=== PATIENT | female | born 1935 | race Caucasian/White ===

== ENCOUNTER 2017-09-16 09:03 | Day surgery (SDC) | payer MEDICARE, OTHER ==
[~2017-09-16] VITALS: Ht 160 cm; Wt 93.9 kg
[~2017-09-16 09:03] MED LIST: ASPIR-LOW81 MG PO; BENICAR HCT 401 EACH PO; DICLOFENAC POTA50 MG PO; DICLOFENAC SODI50 MG PO; DILTIAZEM 24HR180 M1 PO; GABAPENTIN300 MG PO; GABAPENTIN400 MG PO; GLIMEPIRIDE2 MG PO; LEVOTHYROXINE75 MCG PO; MINOCYCLINE HC100 MG PO; VITAMIN B COMP1 EACH PO
--- NOTE | 2017-09-16 10:38 | NUR ---
BLOOD SUGAR 113
== END 2017-09-16 11:56 | disposition home or self-care (01) ==
LOC: DS 09:03 → OPS 09:03 → DS 10:00 → OPS 10:00
PROC: 08RJ3JZ Replacement of Right Lens with Synthetic Substitute, Percutaneous Approach (ICD-10-PCS; principal; 2017-09-16)
DX: H25.811 Combined forms of age-related cataract, right eye (principal); I10 Essential (primary) hypertension; E11.9 Type 2 diabetes mellitus without complications; Z90.49 Acquired absence of other specified parts of digestive tract; Z90.710 Acquired absence of both cervix and uterus; Z98.890 Other specified postprocedural states; Z88.1 Allergy status to other antibiotic agents; Z95.0 Presence of cardiac pacemaker; Z79.899 Other long term (current) drug therapy
CPT/HCPCS: 00140; J2250

== ENCOUNTER 2017-09-30 08:28 | Day surgery (SDC) | payer MEDICARE, OTHER ==
[~2017-09-30] VITALS: Ht 160 cm; Wt 93.9 kg
== END 2017-09-30 10:15 | disposition home or self-care (01) ==
LOC: OPS 08:28 → DS 08:28 → OPS 09:30
PROVIDERS: Ophthalmology
PROC: 08RK3JZ Replacement of Left Lens with Synthetic Substitute, Percutaneous Approach (ICD-10-PCS; principal; 2017-09-30 09:30)
DX: H25.812 Combined forms of age-related cataract, left eye (principal); E11.9 Type 2 diabetes mellitus without complications; I10 Essential (primary) hypertension
CPT/HCPCS: 140

== ENCOUNTER 2022-02-17 16:29 | Emergency (ER) | payer MEDICARE ==
[~2022-02-17] VITALS: Ht 160 cm; Wt 93.9 kg
--- OUTSIDE RECORDS SUMMARY | 2022-02-17 16:32 | XMS ---
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 Ron has no Care Guidelines for this patient. Сергей VISIT COUNT (12 MO.) 1 STEFFANIE Farah TOTAL 1 NOTE: Visits indicate total known visits. ED/UCC VISIT TRACKING (12 MO.) 02/17/2022 16:30 STEFFANIE Castillo [place] TYPE: Emergency COMPLAINT: - RT LEG PAIN INPATIENT VISIT TRACKING (12 MO.) No inpatient visits to display in this time frame [id number]
[2022-02-17] MEDS ORDERED: ALLOPURINOL100 MG PO (16:50)
[2022-02-17] MEDS ORDERED: PREVALITE PACKET4 GM PO (16:50)
[2022-02-17] MEDS ORDERED: TORSEMIDE5 MG PO (16:50)
[2022-02-17] MEDS ORDERED: OLMESARTAN MEDO40 MG PO (16:50)
[2022-02-17] MEDS ORDERED: BACTRIM DS TAB1 EACH PO (17:48)
== END 2022-02-17 18:38 | disposition home or self-care (01) ==
LOC: ED 16:29
DX: L03.115 Cellulitis of right lower limb (principal); I10 Essential (primary) hypertension; E11.40 Type 2 diabetes mellitus with diabetic neuropathy, unspecified; Z88.1 Allergy status to other antibiotic agents; Z79.899 Other long term (current) drug therapy; Z79.82 Long term (current) use of aspirin
CPT/HCPCS: 36415; 80048; 83880; 85025; 93971; 99284-25; A9270

== ENCOUNTER 2022-02-20 14:08 | Inpatient (IN) | payer MEDICARE ==
[~2022-02-20] VITALS: Ht 160 cm; Wt 90.0 kg
[~2022-02-20 14:08] MED LIST changes: +ALLOPURINOL100 MG PO; +BACTRIM DS TAB1 EACH PO; +OLMESARTAN MEDO40 MG PO; +PREVALITE PACKET4 GM PO; +TORSEMIDE5 MG PO
--- OUTSIDE RECORDS SUMMARY | 2022-02-20 14:12 | XMS ---
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 Ron has no Care Guidelines for this patient. [facility]гей [facility]12 MO.) [facility] NOTE: Visits indicate total known visits. ED/C VISIT TRACKING (12 MO.) [facility] COMPLAINT: - R LEG RED/SWOLLEN 02/17/2022 16:30 STEFFANIE Castillo [place] TYPE: Emergency COMPLAINT: - RT LEG PAIN INPATIENT VISIT TRACKING (12 MO.) No inpatient visits to display in this time frame [email or web address]
[2022-02-20] MEDS ORDERED: GEMTESA75 MG PO (15:32)
--- NOTE | 2022-02-20 19:55 | NUR ---
PT ARRIVED TO THE UNIT, IN NO ACUTE DISTRESS. DAUGHTER AT BEDSIDE. VSS NOTABLE CELLULITIS TO RT LOWER EXTERMITY AND WOUND TO GREAT RT TOE PER DAUGHTER PT WAS BEING SEEN BY PCP. ORIENTED TO ROOM CALL LIGHT WITHIN REACH WILL CONTINUE TO MONITOR.
--- NOTE | 2022-02-20 22:00 | NUR ---
PT IN BED AND APPEARS COMFORTABLE. DENIES PAIN/DISCOMFORT. VSS. CALL LIGHT AT HAND. WILL CONT TO MONITOR.
--- NOTE | 2022-02-21 01:00 | NUR ---
PT IS RESTING IN BED W/ HER EYES CLOSED AND APPEARS COMFORTABLE. TOLERATING IVF. VERBALIZES NEEDS APPROPRIATELY. CALL LIGHT WITHIN REACH. WILL CONT TO MONITOR.
--- NOTE | 2022-02-21 05:10 | NUR ---
PT RESTING IN BED WITH HER EYES CLOSED; NO DISTRESS NOTED. TOLERATING IVF ORDERED. VSS. VERBALIZES NEEDS APPROPRIATELY. CALL LIGHT WITHIN REACH. WILL CONT TO MONITOR.
--- NOTE | 2022-02-21 08:38 | NUR ---
PATIENT AWAKE IN BED, DAUGHTER IN ROOM. VITALS AND I&OS CHARTED, DUMONT EMPTIED. GLUCOSE CHECKED AND BREAKFAST PROVIDED. NO OTHER NEEDS AT THIS TIME
--- NOTE | 2022-02-21 09:07 | NUR ---
IN PATIENT'S ROOM FOR ASSESSMENT, VITALS, AND ADVERTISING MATERIAL DISTRIBUTOR. PATIENT RESTING IN BED AND APPEARS COMFORTABLE. PT ALERT, ORIENTED, AND PLEASANT. PT STATES SHE HAS CONSTANT PAIN IN LEGS FROM NEUROPATHY. RIGHT LEG VERY RED, UP TO PAST THE KNEE JOINT AND OUTLINED WITH BLACK INK, WHICH REDNESS HAS EXTENDED SLIGHTLY BEYOND THE MARKINGS. PLAN OF CARE DISCUSSED WITH PATIENT AND HER DAUGHTER, AND ALL QUESTIONS ANSWERED BEST POSSIBLE. IVF CONTINUE AT 125 ML/HR. BOTH IV SITES FLUSHING AND WORKING WELL. TEMP WAS 99.0 THIS AM. PT ATE 90% OF HER BREAKFAST. DUMONT DRAINING CLEAR YELLOW DILUTE URINE. PEDAL PULSES HARD TO PALPATE AND DOPPLER USED. TONI FROM IN ROOM TALKING ABOUT PLANS FOR D/C. WILL CONTINUE TO MONITOR. BP THIS AM 130/43. PT REMAINS IN A VENT PACED RHYTHM, RATE 80s.
--- NOTE | 2022-02-21 10:42 | NUR ---
PATIENT REMAINS RESTING IN BED WITH DAUGHTER AT BEDSIDE. PICTURES TAKEN OF RIGHT LEG AND RIGHT TOE AND PLACED IN CHART - PT ABLE TO SIGN CONSENT FOR PHOTOS. PT REMAINS ON ROOM AIR, HR IN THE 80s. LASP BP 115/44.
--- NOTE | 2022-02-21 11:51 | NUR ---
DR. RAMSEY IN ROOM TO SEE PATIENT AND PLAN OF CARE DISCUSSED. PATIENT WILL TRANSFER TO MEDICAL FLOOR W/O TELEMETRY AND DUMONT TO BE D/C. PT AND HER DAUGHTER KIN UPDATED ON PLAN AND ALL QUESTIONS ANSWERED. PT C/O SHARP PAINS "NEUROPATHY LIKE" IN HER FEET AND LEGS NOW. WILL CONTINUE TO KEEP LEG ELEVATED. CONTINUE TO MONITOR.
--- NOTE | 2022-02-21 12:01 | NUR ---
PATIENT SITTING UP IN BED FOR LUNCH. VITALS AND I&OS CHARTED. DUMONT EMPTIED. GLUCOSE CHECKED AND RN NOTIFIED. CALL LIGHT IN EASY REACH.
--- NOTE | 2022-02-21 13:04 | NUR ---
REPORT GIVEN TO ELIZABETH LEBRON WHO WILL BE RESUMING CARE FOR THIS PATIENT. ALL QUESTIONS ANSWERED. PT WILL TRANSFER TO MED/SURG Aj DUMONT TO BE D/C.
--- NOTE | 2022-02-21 13:30 | NUR ---
DUMONT CATHETER REMOVED AT THIS TIME, 8.5 ML STERILE WATER REMOVED FROM [place], PT TOLERATED WELL REMOVED WITHIN NORMAL LIMITS, MONITOR REMOVED, PT TRANSPORTED TO ROOM 120 ON MEDICAL/SURGICAL UNIT.
--- NOTE | 2022-02-21 13:30 | NUR ---
RECEIVED REPORT FROM CCU RN, TRANSPORTED PT. TO ROOM 120, ASSUMED CARE OF PT., ORDERS REVIEWED AND ACKNOWLEDGED, ASSESSMENT COMPLETED AND ORIENTED TO HER ROOM. RATES PAIN 2-3/10 FOR R LE. ELEVATED ON PILLOWS AND REDDENED AREA MARKED. IV ABX ORDERED, TAKING PO BUT DECREASED APPETITE. STATES NO BM SINCE SATURDAY. HER NORMAL BOWEL HABIT IS EVERY DAY LOOSE BM IN WHICH SHE TAKES A MED FOR. WATER AT BEDSIDE, 2 PERIPHERAL IV'S. IVF SALINE LOCKED. STATES SHE HAS HAD A FALL AT HOME AND USES A FWW AT HOME. SHE IS FEELING LIKE SHE COULD STAND BUT IS WEAK. B/P 120'S/49, HR 79, RA, LUNGS CLEAR. A & O X 4. DUMONT DC'D APPROX. 1330, DTV AT 1730. VISITORS AT BEDSIDE. IN HER ROOM.
[2022-02-21] MEDS ORDERED: PREVALITE PACKET4 GM PO (15:46)
--- NOTE | 2022-02-21 15:47 | NUR ---
MED REC COMPLETE
--- NOTE | 2022-02-21 16:05 | NUR ---
NO URGE TO URINATE YET, SHE IS DRINKING SMALL AMOUNTS OF FLUID. RESTING IN BED, PT AND PHARMACIST VISITED PATIENT. FWW IN ROOM IN CASE SHE WANTS TO STAND PIVOT TO BSC, DTV BY 1730. WATCHING TV, OFFERED FLUIDS, WATER W/SPLASH OF CRANBERRY.
--- NOTE | 2022-02-21 19:09 | EKG ---
[facility] [address] [place] [address] Signed Atrial-sensed ventricular-paced rhythm Abnormal ECG No previous ECGs available Confirmed by KASSANDRA RAMSEY MD ([id number]) on 02/21/2022 7:09:29 PM Electronically Signed By: KASSANDRA RAMSEY MD 02/21/22 1909 PATIENT NAME: JOVANY MENDEZ Electrocardiogram DATE OF : 37 PHYSICIAN: KASSANDRA RAMSEY MD REPORT #: [id number] REPORT IS CONFIDENTIAL AND NOT TO BE RELEASED WITHOUT AUTHORIZATION
--- NOTE | 2022-02-21 19:30 | NUR ---
REPORT RECEIVED FROM ELIZABETH SORTO. pt RESTING IN BED WITH EYES CLOSED, BREATHING EQUAL AND UNLABORED. CALL LIGHT WITHIN REACH.
--- NOTE | 2022-02-21 21:58 | NUR ---
2PA BACK TO BED FROM BS WITH FWW. ASSESSMENT COMPLETE. RIGHT LEG RED, HOT TO TOUCH, 2+ EDEMA. ELEVATED ON TWO PILLOWS. pt RATES PAIN 3-4/10 DENIES PRN PAIN MEDICATION OFFERED. IV SITES FLUSHED WNL. IVF INFUSING WNL. IV ANTIBIOTIC INFUSION COMPLETE. ICE WATER PROVIDED AND IN REACH. CALL LIGHT NEXT TO pt. NO ADDITIONAL REQUESTS.
--- NOTE | 2022-02-22 00:10 | NUR ---
CALL LIGHT ANSWERED. pt WEAK. ASSISTED TO USE BED MICHELE AT THIS TIME FOR pt SAFETY. LARGE VOID, SPILLAGE ON CHUX. CHUX AND ATTENDS CHANGED. IVF INFUSING WNL. CALL LIGHT IN REACH.
--- NOTE | 2022-02-22 03:06 | NUR ---
CALL LIGHT ANSWERED. pt REQUESTING TO VOID, NOT SURE IF SHE IS STRONG ENOUGH TO STAND AT THIS TIME. ATTEMPT TO USE BED MICHELE. NO VOID. pt FEELS URGE TO VOID. BLADDER SCAN FOR >850 MLS. 3PA TO STAND AND PIVOT TO BSC. 200 ML VOID, BLADDER SCAN >758 MLS. pt BACK IN BED, ATTENDS ON. ASSESSMENT COMPLETE. RIGHT LEG ELEVATED ON PILLOW. pt DENIES NEED FOR PRN MEDICATIONS. IVF INFUSING WNL. CALL LIGHT IN REACH.
--- NOTE | 2022-02-22 03:11 | NUR ---
PHONE CALL TO , TELEPHONE ORDERS RECEIVED TO PLACE DUMONT CATHETER REPEATED BACK. UPDATED THAT IV WAS SL FROM 1330 TO 2000 PER NOTES AND REPORT. TELEPHONE ORDER TO CONTINUE SODIUM BICARB, TWO BAGS ORDERED.
--- NOTE | 2022-02-22 03:47 | NUR ---
DUMONT CATHETER PLACED BY ELIZABETH RENE. STERILE TECHNIQUE MAINTAINED, EDUCATION PROVIDED TO pt. IMMEDIATE 950 MLS DILUTE URINE RETURNED. pt REPOSITIONED WITH RIGHT LEG ELEVATED ON TWO PILLOWS. IVF INFUSING WNL. CALL LIGHT WITHIN REACH.
--- NOTE | 2022-02-22 06:49 | NUR ---
pt SLEEPING SOUNDLY. STARTLES TO RN VOICE ENTERING ROOM. DUMONT EMPTIED, DILUTE URINE. VSS. pt DENIES PAIN AT THIS TIME, REQUSTING TO REST. SCHEDULED MEDICATION ADMINSITERED. IVF INFUSING WNL. CALL LIGHT IN REACH.
--- NOTE | 2022-02-22 07:15 | NUR ---
Report from ELIZABETH Cano. Patient awake, alert and oriented, sitting up in bed. Call light in reach, bed rails up X2. Denies needs at this time.
--- NOTE | 2022-02-22 08:06 | NUR ---
LYING IN BED, CALL LIGHT IN REACH. AM MEDICATIONS ADMINISTERED, PRN TYLENOL FOR PAIN. REPOSITIONED LEG PER PATIENT REQUEST. DENIES OTHER NEEDS AT THIS TIME. ASSESSMENT COMPLETED.
--- NOTE | 2022-02-22 11:10 | NUR ---
ANGELA IS SAT UP IN BED WITH RIGHT LEG ELEVATED WITH 2 PILLOWS. BED BATH COMPLETED. CALL LIGHT WITHIN REACH NO FURTHER TASKS AT THIS TIME
--- NOTE | 2022-02-22 16:10 | NUR ---
Faxed Face sheet, H&P, progress notes, labs, covid vaccination dates, med list.
--- NOTE | 2022-02-22 17:00 | NUR ---
Right leg continues to have redness, purpura, and blistering. Pain controlled with PRN Tylenol. Continues on IV antibiotics. Insulin given per sliding scale. Sodium bicarb continues infusing, convert to SL when this bag is completed.
--- NOTE | 2022-02-22 17:01 | NUR ---
Spoke with Karon and her daughter, Yvonne. Asked if they had discussed plan for where pt will go on dc. Pt states she is requiring 2-3 people to get out of bed. She feels she will need a SNF. First choice is [facility], second is [facility] in [place], 3rd is [facility] or [facility]. Let her know I will send a chart. If something changes and it is not needed, we can cancel. Its best to get her name on the list.
--- NOTE | 2022-02-22 18:08 | NUR ---
ANGELA WAS SITTING UP IN BED AND WANTED LAID BACK. I&O AND VITALS CHARTED. CALL LIGHT WITHIN REACH. NO FURTHER TASKS AT THIS TIME
--- NOTE | 2022-02-22 19:10 | NUR ---
SHIFT REPORT RECEIVED FROM DAYSHIFT ELIZABETH SAUNDERS AT BEDSIDE. pt AWAKE AND RESTING IN BED. REDDNESS TO RLE REMAINS OUTLINED, SOME FAINT REDDNESS ALSO NOTED TO RIGHT INNER THIGH NEAR GROIN, OUTLINED BY ELIZABETH SAUNDERS. IV SITE WNL, FLUIDS INFUSING DIRECTED. NO FURTHER NEEDS, CALL LIGHT IN REACH AND BOARD UPDATED.
--- NOTE | 2022-02-22 22:00 | NUR ---
PT CALLED FOR ICEWATER, SHE DENIES FURTHER NEEDS. CALL LIGHT IS CLOSE.
--- NOTE | 2022-02-22 22:15 | NUR ---
ASSESSMENT COMPLETE, SCHEDULED MEDS GIVEN (SEE EMAR). pt A/OX4, CALLS APPROPRIATELY. ASSISTED THE pt WITH CHANGING POSITION IN BED, PILLOW UNDER BLE AND LEFT HIP. NO CHANGE TO RLE APPEARANCE, WEAK PEDAL PULSE TO RLE AND STRONG PEDAL PULSE TO LLE. CHRONIC NUMBNESS AND TINGLING REPORTED D/T "NEUROPATHY". IV SITES X2 WNL AND FLUSHES EASILY, IV FLUIDS INFUSING DIRECTED. WILL SALINE VALERIA DONCE CURRENT BAG IS COMPLETE. NO FURTHER NEEDS, CALL LIGHT IN REACH.
--- NOTE | 2022-02-23 00:26 | NUR ---
ASSISTED pt WITH REPOSITIONING IN BED, PILLOW UNDER RIGHT HIP AND RLE. IV SITE REMAINS WNL. CALL LIGHT IN REACH, NO FURTHER NEEDS.
--- NOTE | 2022-02-23 01:21 | NUR ---
iv pump alarming, issue resolved. iv site now saline locked and wnl. no further needs, iv pump cleared. call light and personal belongings in reach.
--- NOTE | 2022-02-23 03:00 | NUR ---
IN TO MOVE PILLOW FROM PTs RIGHT SIDE TO THE LEFT, PT ABLE TO ASSIST WITH THE ROLE, FRESH ICE WATER GIVEN
--- NOTE | 2022-02-23 03:26 | NUR ---
ASSESSMENT COMPLETE, NO ACUTE CHANGES. pt RESTING IN BED, OPENED EYES TO VOICE. DENEID NEED FOR PAIN MEDICATION, BUT STATES, "OH I DON'T KNOW" WHEN ASKED TO RATE PAIN ON PAIN SCALE. WILL MONITOR. RLE REMAINS ELEVATED IN BED WITH PILLOWS X2, +2 EDEMA TO LLE, MORE SO IN FOOT. PEDAL PULSES WEAK COMPARED TO LEFT FOOT. NO CHANGES TO REDDNESS, REMAINS WITHIN OUTLINE. NO FURTHER NEEDS, CALL LIGHT IN REACH.
--- NOTE | 2022-02-23 06:00 | NUR ---
scheduled iv ancef and po thyroid medication both given at this time, see emar. no further needs, call light in reach.
--- NOTE | 2022-02-23 07:41 | NUR ---
Patient awake in bed, alert and oriented x4. Patient on room air, respirations even and non labored. RLE is elevated at this time. Patient denies needs. Personal supplies and call light within reach.
--- NOTE | 2022-02-23 09:58 | NUR ---
macyt is sitting up in bed. daughter is in room. i&o and vs charted. call light within reach. no further tasks at this time
--- NOTE | 2022-02-23 12:03 | NUR ---
PT SEEMS ALERT, OREINTED AND VISITING WITH FRIEND KAROLINA. PT VERY PLEASED WITH HER CARE-SAID SHE IS FEELING SO MUCH BETTER". GOOD VISIT, PT REQUESTED PRAYER. LEFT G.POST
--- NOTE | 2022-02-23 12:24 | NUR ---
Arshad removed per provider order. Arshad balloon deflated prior to removal, 9ml sterile water removed. Catheter tip intact. Patient tolerated well. Patient visiting with her family member at this time. Legs elevated in on pillows. No current needs. Personal supplies and call light within reach.
--- NOTE | 2022-02-23 13:54 | NUR ---
patient crying out to get back to bed from the chair. She is in a pain 5/10, requesting whatever she can have. With the heavy assist of 2PA/FWW/Gait belt, returned the patient to bed. The gave her PRN medication and scheduled medications as well. She appears to be more comfortable in the bed.
--- NOTE | 2022-02-23 14:00 | NUR ---
Contacted [facility] and asked if they received the chart I faxed last night requesting placement of this pt. They did receive the chart, but have not reviewed. Pt denies needs.
--- NOTE | 2022-02-23 15:50 | NUR ---
Patient in bed resting, no distress. Legs are elevated at this time. Personal supplies and call light within reach.
--- NOTE | 2022-02-23 17:32 | NUR ---
rasta is sitiing up in bed call light within reach. i&o and vitals charted. no further tasks at this time
--- NOTE | 2022-02-23 18:22 | NUR ---
REPORT FROM PO RN, ASSUMED CARE OF PT. , PT. RESTING IN BED, APPEARS SLIGHTLY LABORED BREATHING AT REST, GENERALIZED EDEMA, BILATERAL UE AND LE, BLADDER SCANNED FOR 620 ML URINE, TIM WAS DC'D THIS AFTERNOON, NO URGE TO URINATE, ASSISTED PT. TO BSC AND LISTENED TO LUNG SOUNDS WHILE UP, CRACKLES AT THE RIGHT BASE AND SLIGHT CRACKLE AT THE LEFT BASE, TACHYPNEA 28 WHILE ON BSC, 02 SATS @ 99 % , DENIES CP OR SOB, LABORED BREATHING PER RN. PT. STATES SHE DOES TAKE A DIURETIC AT HOME AND IT WAS RECENTLY INCREASED TO DAILY. WILL TALK WITH DR. ECHEVERRIA ON THE FLOOR NOW.
--- NOTE | 2022-02-23 18:58 | NUR ---
[place] 5/325mg po admin for reports of 5/10 RLE pain. Strait cath done at this time by kati velez RN using sterile technique. Patient tolerating strait cath well.
--- NOTE | 2022-02-23 19:15 | NUR ---
SHIFT REPORT RECEIVED FROM DAYSHIFT RN ALVIN AT BEDSIDE. pt RESTING IN BED WITH EYES CLOSED. ON RA, RR EVEN AND UNLABORED. CALL LIGHT IN REACH, VISTOR IN ROOM.
--- NOTE | 2022-02-23 20:00 | NUR ---
IN TO PROVIDE PT WITH SOME ICE WATER
--- NOTE | 2022-02-23 20:40 | NUR ---
PT PLACED UNTO A BEDPAN, WILL CALL WHEN READY
--- NOTE | 2022-02-23 21:00 | NUR ---
IN TO GET VITALS, PT VOIDED LARGE AMT WITH BEDPAN AND ATTENDS
--- NOTE | 2022-02-23 21:57 | NUR ---
ASSESSMENT COMPLETE, SCHEDULED MEDS GIVEN (SEE EMAR). pt A/OX4, CALLS APPROPRIATELY. IV SITE WNL, FLUSHES EASILY. NO CHANGE TO REDDNESS TO RLE, REMAINS ELEVATED IN BED WITH PILLOWS X2. CALL LIGHT IN REACH, WILL MONITOR FOR CHANGES. pt DENIES NEED FOR PAIN MEDICATION AT THIS TIME, REPORTS TOLERABLE 01/04.
--- NOTE | 2022-02-23 23:25 | NUR ---
PT ASSISTED OFF OF BEDPAN, VOIDED LOTS OF URINE, WATER FILLED
--- NOTE | 2022-02-24 01:30 | NUR ---
ROUNDED ON pt, pt AWAKE AND RESTING IN BED. DENIES NEEDS OR CONCERNS. CALL LIGHT IN REACH. RLE REMAISN ELEVATED IN BED WITH PILLOWS X2.
--- NOTE | 2022-02-24 03:58 | NUR ---
ASSESSMENT COMPLETE, NO ACUTE CHANGES. pt AWOKE TO VOICE, DENIES NEEDS OR CONCERNS. DENIES PAIN, PRN PAIN MEDICATION OFFERED, pt DECLINED. NO CHANGE TO REDDNESS/DISCOLORATION TO RLE, REMAINS ELEVATED IN BED WITH PILLOWS X2. WEAK PEDAL PULSES, GENERALIZED EDEMA REMAINS NOTED. pt DENIES CALF PAIN. CALL LIGHT IN REACH.
--- NOTE | 2022-02-24 06:45 | NUR ---
ASSISTED PT ON AND OFF BEDPAN, NEW NO PAD, ATTENDS, CHUX, IN PLACE, NO FURTHER NEEDS
--- NOTE | 2022-02-24 06:59 | NUR ---
SCHEDULED THYROID MEDICATION AND SCHEDULED IV ABX GIVEN, SEE EMAR. NO FURTHER NEEDS, CALL LIGHT IN REACH.
--- NOTE | 2022-02-24 07:30 | NUR ---
UPDATED DR ECHEVERRIA ON pt's VOIDING VIA BEDPAN THIS SHIFT. NO NEW ORDERS RECEIVED.
--- NOTE | 2022-02-24 07:40 | NUR ---
Patient in bed resting, eyes closed, respirations even and non labored. No notable distress. Personal supplies and call light within reach.
--- NOTE | 2022-02-24 09:07 | NUR ---
[place] 5/325mg po admin for reports of 5/10 right leg pain.
--- NOTE | 2022-02-24 12:33 | NUR ---
Patient in bed, RLE elevated at this time. Patient reports pain has imrproved. RLE elevated on pillows at this time. Redness to RLE remains within marked borders, continued swelling and warth noted to leg. Good pedal pulse present to RLE. Patient has a visitor at bedside. No current needs.
--- NOTE | 2022-02-24 15:15 | NUR ---
Admin one tab [place] 5/325mg po for reports of 5/10 RLE pain.
--- NOTE | 2022-02-24 19:20 | NUR ---
SHIFT REPORT RECEIVED FROM CYWITERESA FONTENOT AT BEDSIDE. pt RESTING IN BED, AWAKE. RLE ELEVATED IN BED, REDDNESS REMAINS WITHIN OUTLINE, WILL CONTINUE TO MONITOR. CALL LIGHT IN REACH.
--- NOTE | 2022-02-24 21:15 | NUR ---
PT ASSISTED ONTO BEDPAN TO VOID, BEDPAN CHOOSEN DUE TO URGANCY
--- NOTE | 2022-02-24 21:20 | NUR ---
VS TAKEN, ACCU CHECK DONE, I&Os DONE, FRESH ICE WATER FILLED, NO FURTHER NEEDS AT THIS TIME
--- NOTE | 2022-02-24 22:03 | NUR ---
assessment complete, scheduled meds given. 3 units insulin lispro ss verified with second rn lupillo carrizales result of 188. pt a/ox4, calls appropriately. rle remaisn unchanged since start of shift, weak pedal pulse. generalized +2 edema in right foot. remains elevated. diffuse erythema with hemorrhagic spots also remains noted. call light in reach.
--- NOTE | 2022-02-24 23:43 | NUR ---
elvirao for desenex powder ordered for reddness to pannus/groin folds.
--- NOTE | 2022-02-24 23:48 | NUR ---
PT CALLED FOR ASSISTANCE TO TOILET. THIS RN AND ODIN INTO PT ROOM ASSISTED PT UP TO BEDSIDE COMMODE WITH FWW, PT TOLERATED ACTIVITY FAIR, SHE REQUIRED BOTH STAFF MEMBERS TO ASSIST IN STANDING AND THEN TO REPOSITION IN BED. WARM BLANKET PROVIDED TO PT DELIGHT. NO OTHER REQUESTS OR CONCERNS. WAS NOT AND REPORTED TO PRIMARY NURSE ANDIE THAT PT HAS REDNESS IN PANNUS SKIN FOLDS. TOSHA TO ORDER NIO RX POWDER TO APPLY TO AFFECTED AREAS
--- NOTE | 2022-02-24 23:50 | NUR ---
IN TO ASSIST PT UNTO THE BSC, 2PA FWW PIVOT, PT VOID AND PASS BM, PIVOT BACK TO BED, BOOSTED, FRESH ICE WATER GIVEN, NO FURTHER NEEDS AT THIS TIME
--- NOTE | 2022-02-25 00:11 | NUR ---
SCHEDULED DESENEX POWDER APPLIED TO GROIN/PANNUS FOLDS D/T REDDNESS. pt EDUCATED ON NEW MEDICATION, pt VERBALIZED UNDERSTANDING. SECOND RN MARI MARTINEZ VERIFIED MEDICATION. NO FURTHER NEEDS, CALL LIGHT IN REACH.
--- NOTE | 2022-02-25 02:22 | NUR ---
pt RESTING IN BED ON RA, RR EVEN AND UNLABORED. NO DISTRESS NOTED. CALL LIGHT IN REACH.
--- NOTE | 2022-02-25 03:45 | NUR ---
pt RESTING IN BED, EYES CLOSED. RR EVEN AND UNLABORED. NO DISTRESS NOTED. CALL LIGHT IN REACH.
--- NOTE | 2022-02-25 05:00 | NUR ---
PT ASSISTED UP TO THE BSC, 2PA PIVOT FWW, CLEAN DRAW SHEET AND CHUX PROVIDED, BACK TO BED, VITALS DONE, I&Os, FRESH ICE WATER GIVEN, NO FURTHER NEEDS AT THIS TIME
--- NOTE | 2022-02-25 05:21 | NUR ---
ASSESSMENT COMPLETE, pt UP 2PA WITH FWW FROM BSC BACK TO BED. ASSESSMENT COMPLETE, NO ACUTE FINDINGS. NO CHANGES TO RLE, BLISTER CLUSTERS X2 REMAINS NOTED, ELEVATED IN BED. pt REPORTS 5/10 PAIN, PRN PAIN MEDICATION AND SCHEDULED THYROID MEDICATION GIVEN. VSS, I&O'S COMPELTE. FRESH WATER GIVEN.
--- NOTE | 2022-02-25 06:00 | NUR ---
SCHEDULED IV ABX GIVEN, IV SITE WNL. NO FURTHER NEEDS, CALL LIGHT IN REACH.
--- NOTE | 2022-02-25 07:50 | NUR ---
Patient in bed resting, eyes closed, respirations even and non labored. No notable distress. Personal supplies and call light within reach.
--- NOTE | 2022-02-25 10:37 | NUR ---
Patient up to void with heavy two person assist using FWW. Patient reports her legs are very painful. [place] in use for pain. Patient to work with physical therapy at this time. No current needs. Personal supplies and call light within reach.
--- NOTE | 2022-02-25 10:47 | NUR ---
One tab [place] 5/325mg po admin for reports of 5/10 leg pain.
--- NOTE | 2022-02-25 14:41 | NUR ---
Patient up to void, 750ml clear yellow urine out. Patient reports she is feeling better this afternoon, reporting better pain control. Patient's RLE elevated on pillows. Pedal pulse intact to RLE. Patient has no needs at this time. Personal supplies and call light within reach.
--- NOTE | 2022-02-25 17:05 | NUR ---
Admin one tab [place] 5/325mg po for reports of 5/10 RLE pain.
--- NOTE | 2022-02-25 19:00 | NUR ---
SHIFT REPORT RECEIVED FROM DAYSHIFT ELIZABETH FONTENOT AT BEDSIDE, pt AWAKE AND CURRENTLY ON BSC. NO NEEDS OR CONCERNS VERBALIZED, CALL LIGHT IN REACH.
--- NOTE | 2022-02-25 22:19 | NUR ---
ASSESSMENT COMPLETE, SCHEDULED MEDS GIVEN (SEE EMAR). IV SITES X2 WNL. pt DENIES PAIN AND NAUSEA. NO CHANGES TO RLE, REMAINS ELEVATED IN BED WITH PILLOWS X2. PEDAL PULSES NOTED, pt REPORTS CHRONIC NEUROPATHY. pt TO BS, 2PA WILL CALL WHEN READY TO GO BACK TO BED, CALL LIGHT IN REACH.
--- NOTE | 2022-02-25 23:45 | NUR ---
pt RESTING IN BED WITH EYES CLOSED, RR EVEN AND UNLABORED. NO DISTRESS NOTED. CALL LIGHT IN REACH.
--- NOTE | 2022-02-26 02:48 | NUR ---
pt RESTING IN BED WITH EYES CLOSED, RR EVEN AND UNLABORED. ON RA, NO DISTRESS NOTED. RLE REMAINS ELEVATED IN BED, WILL CONTINUE TO MONITOR. CALL LIGHT IN REACH.
--- NOTE | 2022-02-26 03:15 | NUR ---
ASSESSMENT COMPLETE, NO ACUTE CHANGES. FRESH WATER PROVIDED AND pt UP 2PA WITH FWW TO BSC AND BACK TO BED. RLE REMAINS ELEVATED IN BED W/ PILLOWS. NO FURTHER NEEDS, CALL LIGHT IN REACH.
--- NOTE | 2022-02-26 05:19 | NUR ---
ASSISTED pt WITH REPOSITIONING ANF BOOSTED pT IN BED WITH HELP FROM KATHERYN PONCE. SCHEDULED THYROID MEDICATION AND PRN PAIN MEDICAITON, pT REPORTS 5/10 PAIN IN RLE. SEE EMAR. CALL LIGHT IN REACH.
--- NOTE | 2022-02-26 05:45 | NUR ---
CALL LIGHT ANSWERED, pt REPORTS PAIN IN RIGHT UPPER ARM/SHOULDER. pt DENIES SOB, CHEST PAIN, JAW PAIN, DYSPNEA, INDIGESTION. HEART SOUNDS REGULAR W/ AUSCULTATION. VSS- HR 78, BP 130/39, MAP OF 61, RR 19. pt RESTING IN BED, NO DISTRESS NOTED. RR EVEN AND UNLABORED. pt RECENTLY GIVEN PAIN MEDICATION AND PILLOW PLACED UNDER ARM FOR COMFORT WILL MONITOR. CALL LIGHT IN REACH.
--- NOTE | 2022-02-26 05:57 | NUR ---
SCHEDULED IV ABX GIVEN DIRECTED, SEE EMAR. IV ISTE WNL. pt RESTING IN BED AND SLEPT THROUGH TECHNICAL SUPPORT REPRESENTATIVE W/ EXCEPTION OF BRIEF AWOKE TO VOICE. NO DISTRESS NOTED. NO NEEDS VERBALIZED.
--- NOTE | 2022-02-26 08:00 | NUR ---
Contacted [facility] and asked if they will have a bed for this patient. Received a message they will let me know.
--- NOTE | 2022-02-26 08:45 | NUR ---
MORNING ASSESSMENT COMPLETE. PATIENT IS SITTING UP IN BED TO EAT BREAKFAST, DAUGHTER IN ROOM WITH PATIENT. PATIENT REPORTS PAIN IS MINIMAL, RIGHT LEG ELEVATED ON SEVERAL PILLOWS, DRAINAGE NOTED. RIGHT ARM IV'S X2 FLUSHED AND INTACT. PATIENT DENIES OTHER NEEDS AT THIS TIME.
--- NOTE | 2022-02-26 10:03 | NUR ---
IV VANCO INFUSING FOR 1 HOUR.
--- NOTE | 2022-02-26 11:08 | NUR ---
PATIENT GIVEN ONE PAIN PILL IN ANTICIPATION OF WORKING WITH PHYSICAL THERAPY. PATIENT IS SALINE LOCKED AFTER ABX INFUSION.
--- NOTE | 2022-02-26 12:56 | NUR ---
PATIENT UP TO COMMODE WITH 2PS AND FWW. PATIENT TOLERATED ACTIVITY--FAIR.
--- NOTE | 2022-02-26 13:10 | NUR ---
Received a call from Cristian, he states rn reviewed the chart and need to know: number of people needed to assist, is pt still on IV antibiotics, and if there will be wound care orders. Spoke with Dr. Rojo and updated Cristian. He then replied they will have a bed open at 10am tomorrow for this pt.
--- NOTE | 2022-02-26 14:18 | NUR ---
Kaylie BRAVO IN WORKING WITH PT, WILL CHECK BACK
--- NOTE | 2022-02-26 15:00 | NUR ---
Texted Cristian, I have just faxed orders and I scheduled wc transport for 1045 as this was the only slot available. Called and updated charge nurse, wc van will need our wc.
--- NOTE | 2022-02-26 15:40 | NUR ---
DR. ECHEVERRIA IN TO SEE PATIENT, DISCUSS POSSIBLE DISCHARGE TO REHAB.
[2022-02-26] MEDS ORDERED: TAMSULOSIN HCL0.4 MG PO (15:46)
[2022-02-26] MEDS ORDERED: CEPHALEXIN500 MG PO (15:46)
[2022-02-26] MEDS ORDERED: HYDROCODON-ACE1 EA10 PO (15:47)
[2022-02-26] MEDS ORDERED: GABAPENTIN400 MG PO (15:47)
[2022-02-26] MEDS ORDERED: TORSEMIDE5 MG PO (15:47)
[2022-02-26] MEDS ORDERED: LEVOTHYROXINE75 MCG PO (15:48)
[2022-02-26] MEDS ORDERED: ALLOPURINOL100 MG PO (15:49)
--- NOTE | 2022-02-26 16:30 | NUR ---
PT UP TO BSC, WILL CALL WHEN READY TO GO BACK
--- NOTE | 2022-02-26 18:11 | NUR ---
Pt required multiple pad changes under R leg d/t posterior calf drainage (serosanguinous). R leg elevated on 2 pillows. Pt continues to require 2 people for BSC transfers. Plan is to discharge Pt to rehab tomorrow. Pt received 2 Norcos for R leg pain today.
--- NOTE | 2022-02-26 19:30 | NUR ---
SHIFT REPORT FORM ANTHONY Pacheco RN, NO NEW CHANGES, PT 2 PERSON ASSIST, PAIN MANAGED WITH PRN Q6 HOUR NORCO PRN. PT HAS VOIDING FREQUENCY, WITH ACTIVITY UP TO BSC INCREASE PAIN.
--- NOTE | 2022-02-26 22:53 | NUR ---
PT REPORTS PAIN RLE BURNING, HER RIGHT LOWER FOOT IS ELEVATED ON THREE PILLOW, NORCO PO PRN ADMINSITERED FOR 7 PAIN, ASSESSMENT AND V/S AND I/O ARE CHARTED. PT IS ALERT AND ORIETNED. FRESH ICE WATER PROVIDED. NO OTHER REQUESTS OR CONCERNS AT THIS TIME.
--- NOTE | 2022-02-26 23:45 | NUR ---
2 pa. ASSISTED PRIMARY RN MARI. PATIENT WAS UP TO THE BEDSIDE COMMODE. PATIENT VOIDED 800ML. PATIENT IS BACK IN BED. ICE WATER REFILLED.
--- NOTE | 2022-02-26 23:55 | NUR ---
PT CALLED TO REQUEST ASSISTANCE UP TO BEDSIDE COMMODE, USMAN RN AND KRIS CAMPA INTO PT ROOM TO ASSIST. PT VOIDED CLEAR YELLOW URINE, BACK TO BED WITH RLE ELEVATED ON THREE PILLOWS, ICE PACKS APPLIED TO EACH SIDE OF LEG AT THIS TIME. FRESH WATER PROVIDED, ALSO WARM BLANKET PROVIDED. NO OTHER CONCERNS OR REQUESTS AT THIS TIME.
--- NOTE | 2022-02-27 05:29 | NUR ---
PT HAS SLEPT WELL THIS LATTER PART OF THE SHIFT, SHE WAS UP TO BEDSIDE COMMODE FREQUENTLY TO VOID FIRST HALF OF SHIFT. SHE HAD INCREASED PAIN WITH ACTIVITY, NORCO PO PRN ADMINISTERED ONCE FOR 7/10 PAIN AT RLE, BURNING IN NATURE. SHE HAS BEEN ALERT AND ORIENTED FOR ASSESSMENTS. NO NEW CONCERNS THIS SHIFT, PLAN FOR PT TO DISCHARGE TO [facility] THIS AM.
--- NOTE | 2022-02-27 06:40 | NUR ---
ROUNDING ON PT THIS AM, AM ASSESSSMENT, V/S, I/O COMPLETE. ASSESSED PT FOR PAIN THIS AM SHE REPORTS 02/04, SHE SAID SHE WOULD LIKE TO TAKE THE NORCO CLOSER TO HER TIME OF DISCSHARGE TO PROVIDE BETTER PAIN MANAGEMENT WHILE ACTIVE, PT ADMINISTERED TYLENOL PO PRN 500MG THIS AM TO PROVIDE PAIN MANAGEMENT. PT UP TO BEDSIDE COMMODE TWO PERSON ASSIST. REDNESS TO RLE REMAINS IN THE LINES AND LIGHTENING PROXIMALLY. NO NEW CONCERNS, SHE HAS DRAINAGE FROM BACK OF CALF BLISTERS HAVE OPENED AND ARE DRAINING, THIS IS NOT NEW THIS SHIFT.
--- NOTE | 2022-02-27 09:30 | NUR ---
Updated in 929 meeting, pt will dc at 10:00 as scheduled. van will pick pt up. Orders have been sent. I received a call from her daughter this am, she recieved my message last night and will bring clothing and overnight bag for pt to use at [facility].
--- NOTE | 2022-02-27 10:04 | NUR ---
PATIENT UP TO COMMODE TO VOID/BM. DRESSED FOR DISCHARGE. X2 RIGHT ARM IV'S D/C'D, IV CATHETER INTACT, IV SITES ARE NOT INFLAMED.
--- NOTE | 2022-02-27 10:38 | NUR ---
PATIENT IN WHEELCHAIR FOR TRANSPORT TO [facility].
--- NOTE | 2022-02-27 10:52 | NUR ---
Report called to YO JOHNSON at [facility]. Pt was transported by w/c. Discharge instructions provided to Pt and her daughter.
--- NOTE | 2022-02-27 14:10 | NUR ---
CONNECTED WITH PT IN HALLWAY SHE WAS BEING TAKEN BY ISABEL AND KATHERYN JACQUES TO TRANSPORT TO [facility]. PT SEEMS UPSET, SAID SHE DIDN'T FEEL WELL. GAVE ENCOURAGEMENT AND BLESSING
== END 2022-02-27 10:40 | DRG 872 ==
LOC: ED 14:08 → CCU 18:30 → MS 02-21 13:35
PROVIDERS: ADMIT Internal Medicine; ATTEND Internal Medicine
DX: A41.9 Sepsis, unspecified organism (principal); N17.9 Acute kidney failure, unspecified; L03.115 Cellulitis of right lower limb; E87.1 Hypo-osmolality and hyponatremia; Z20.822 Contact with and (suspected) exposure to COVID-19; R65.20 Severe sepsis without septic shock; D64.9 Anemia, unspecified; E11.65 Type 2 diabetes mellitus with hyperglycemia; N32.81 Overactive bladder; E03.9 Hypothyroidism, unspecified; E11.40 Type 2 diabetes mellitus with diabetic neuropathy, unspecified; E79.0 Hyperuricemia without signs of inflammatory arthritis and tophaceous disease; E78.5 Hyperlipidemia, unspecified; R33.9 Retention of urine, unspecified; E86.1 Hypovolemia; M19.90 Unspecified osteoarthritis, unspecified site; Z95.0 Presence of cardiac pacemaker; Z90.49 Acquired absence of other specified parts of digestive tract; Z90.710 Acquired absence of both cervix and uterus; Z98.41 Cataract extraction status, right eye; Z98.42 Cataract extraction status, left eye; Z98.890 Other specified postprocedural states; Z88.1 Allergy status to other antibiotic agents; Z79.82 Long term (current) use of aspirin; Z79.899 Other long term (current) drug therapy
CPT/HCPCS: 36415; 51702; 71045; 73660; 73700; 80048; 80053; 80202; 81001; 82570; 83605; 83735; 84300; 84550; 85025; 86140; 87040; 87088; 87186; 93005; 93010; 97110; 97116; 97162; 97166; 97535; 99285-25; A9270; C9803; J0690; J1650; J1815; J1940; J3370; J3475; J7030; J7050; J7060; J7121; Q9967; U0003

== ENCOUNTER 2022-04-17 10:11 | Inpatient (IN) | payer MEDICARE ==
[~2022-04-17] VITALS: Ht 160 cm; Wt 93.0 kg
[~2022-04-17 10:11] MED LIST changes: +CEPHALEXIN500 MG PO; +GEMTESA75 MG PO; +HYDROCODON-ACE1 EA10 PO; +TAMSULOSIN HCL0.4 MG PO
--- OUTSIDE RECORDS SUMMARY | 2022-04-17 10:14 | XMS ---
[facility] Notification: JOVANY MENDEZ Security Geriatric Nurse Practitioner Events No recent Security Events currently on file CRITERIA MET - PDMP CARE PROVIDERS SAMI GILMORE Mechanic And Welder Current TERRIE Mays PHONE: [phone] WILY FORRESTER Internal Medicine Current PHONE: Unknown BRIDGET HERR Nurse Practitioner Current PHONE: [phone] SARTHAK ALMAZAN Nurse Practitioner: Family Current PHONE: Unknown ARLEN AGUILAR Internal Medicine Current PHONE: [phone] JORGE LUIS GIBSON Nurse Practitioner Current PHONE: [phone] AURORA CHAPMAN I. Physician [employer] Current PHONE: Unknown ABRT EPSTEIN Nurse Practitioner Current PHONE: Unknown CLEM BRIONES Nurse Rose VANCE PHONE: [phone] [facility] PHONE: [phone] DELMER PRESTON Physician [employer] Current PHONE: Unknown Ron has no Care Guidelines for this patient. EBalwinder VISIT COUNT (12 MO.) 3 STEFFANIE Farah TOTAL 3 NOTE: Visits indicate total known visits. ED/UCC VISIT TRACKING (12 MO.) 04/17/2022 10:12 [facility] TYPE: Emergency COMPLAINT: - FLU INFUSION 02/20/2022 14:09 [facility] TYPE: Emergency COMPLAINT: - R LEG RED/SWOLLEN 02/17/2022 16:30 [facility] TYPE: Emergency COMPLAINT: - RT LEG PAIN DIAGNOSES: - Other specified disorders of the skin and subcutaneous tissue - Other prison (current) drug therapy - Essential (primary) hypertension - Pain in right lower leg - intermodal customer service (current) use of aspirin - Type 2 diabetes mellitus with diabetic neuropathy, unspecified - Cellulitis of right lower limb - Allergy status to other antibiotic agents INPATIENT VISIT TRACKING (12 MO.) 02/20/2022 18:[address] [facility] TYPE: Medical Surgical COMPLAINT: - SEVERE SEPSIS, SHOAIB, CELLULITIS DIAGNOSES: - Other specified postprocedural states - Hypo-osmolality and hyponatremia - Hyperlipidemia, unspecified - Cataract extraction status, right eye - Contact with and (suspected) exposure to COVID-19 - Retention of urine, unspecified - Retention of urine, unspecified - Other salvage determiner (current) drug therapy - Type 2 diabetes mellitus with hyperglycemia - Cataract extraction status, right eye - Presence of cardiac pacemaker - Hypovolemia - Cataract extraction status, left eye - Severe sepsis without septic shock - Acute kidney failure, unspecified - Other prison (current) drug therapy - Presence of cardiac pacemaker - Acute kidney failure, unspecified - Anemia, unspecified - Overactive bladder - Severe sepsis without septic shock - Hypo-osmolality and hyponatremia - Type 2 diabetes mellitus with diabetic neuropathy, unspecified - Acquired absence of both cervix and uterus - Hypothyroidism, unspecified - Other specified postprocedural states - Type 2 diabetes mellitus with hyperglycemia - Acquired absence of other specified parts of digestive tract - alf (current) use of aspirin - Unspecified osteoarthritis, unspecified site - Contact with and (suspected) exposure to COVID-19 - Allergy status to other antibiotic agents - Anemia, unspecified - Unspecified osteoarthritis, unspecified site - Hyperuricemia without signs of inflammatory arthritis and tophaceous disease - Cellulitis of right lower limb - Sepsis, unspecified organism - Cataract extraction status, left eye - Acquired absence of both cervix and uterus - Hypothyroidism, unspecified - Acquired absence of other specified parts of digestive tract - Allergy status to other antibiotic agents - Hyperlipidemia, unspecified - Type 2 diabetes mellitus with diabetic neuropathy, unspecified - Hypovolemia - Hyperuricemia without signs of inflammatory arthritis and tophaceous disease - Cellulitis of right lower limb - alf (current) use of aspirin - Overactive bladder [email or web address]
[2022-04-17] MEDS ORDERED: CEFADROXIL500 MG PO (16:35)
[2022-04-17] MEDS ORDERED: DILTIAZEM ER360 MG PO (16:36)
[2022-04-17] MEDS ORDERED: SULFAMETHOXAZO1 EAC1 PO (16:38)
[2022-04-18] MEDS ORDERED: OLMESARTAN MEDO40 MG PO (07:42)
[2022-04-18] MEDS ORDERED: LANTUS100 UNITS/ SUB-Q (11:07)
[2022-04-18] MEDS ORDERED: TYLENOL EXTRA500 MG PO (11:08)
[2022-04-18] MEDS ORDERED: IBUPROFEN200 MG PO (11:09)
--- NOTE | 2022-04-18 18:18 | EKG ---
[facility] [address] [facility] [place] [address] Signed Atrial-sensed ventricular-paced rhythm Abnormal ECG When compared with ECG of 17-APR-2022 10:15, (Unconfirmed) Electronic ventricular pacemaker has replaced Atrial fibrillation Confirmed by KASSANDRA RAMSEY MD ([id number]) on 04/18/2022 6:18:08 PM Electronically Signed By: KASSANDRA RAMSEY MD 04/18/22 1818 PATIENT NAME: JOVANY MENDEZ Electrocardiogram DATE OF : 37 PHYSICIAN: KASSANDRA RAMSEY MD REPORT #: [id number] REPORT IS CONFIDENTIAL AND NOT TO BE RELEASED WITHOUT AUTHORIZATION
== END 2022-04-24 14:07 | disposition home or self-care (01) | DRG 177 ==
LOC: ED 10:11 → CCU 15:23 → MS 04-21 13:00
PROVIDERS: ADMIT Internal Medicine; ATTEND Internal Medicine
PROC: 8E0ZXY6 Isolation (ICD-10-PCS; principal; 2022-04-17)
PROC: 3E0333Z Introduction of Anti-inflammatory into Peripheral Vein, Percutaneous Approach (ICD-10-PCS; 2022-04-17)
PROC: XW033E5 Introduction of Remdesivir Anti-infective into Peripheral Vein, Percutaneous Approach, New Technology Group 5 (ICD-10-PCS; 2022-04-17)
DX: U07.1 COVID-19 (principal); J12.82 Pneumonia due to coronavirus disease 2019; J96.01 Acute respiratory failure with hypoxia; E87.1 Hypo-osmolality and hyponatremia; N17.9 Acute kidney failure, unspecified; E83.42 Hypomagnesemia; I10 Essential (primary) hypertension; E03.9 Hypothyroidism, unspecified; E79.0 Hyperuricemia without signs of inflammatory arthritis and tophaceous disease; N32.81 Overactive bladder; D64.9 Anemia, unspecified; F41.8 Other specified anxiety disorders; E11.40 Type 2 diabetes mellitus with diabetic neuropathy, unspecified; Z95.0 Presence of cardiac pacemaker; Z88.1 Allergy status to other antibiotic agents; Z79.82 Long term (current) use of aspirin; Z79.899 Other long term (current) drug therapy
CPT/HCPCS: 36415; 36600; 71045; 80048; 80053; 80076; 82533; 82803; 83036; 83735; 83880; 83930; 83935; 84300; 84439; 84443; 84484; 84550; 85025; 87502; 94640; 94667; 94668; 94760; 94762; 94799; 97162; 97166; 97530; 97535; A9270; C9803; J0248; J0456; J0696; J1100; J1650; J1815; J3475; J7030; J7050; J8540; U0003